=== PATIENT | male | born 1970 | race Caucasian/White ===

== ENCOUNTER 2024-01-03 04:15 | Day surgery (SDC) | payer BC, OTHER ==
[2023-12-28 13:24] VITALS: BMI 44.2
[2024-01-03] MEDS ORDERED: DEXTROSE 5%-0.45% SALINE 1,000 ML IV SCH (15:15)
[2024-01-03] MEDS ORDERED: MIDAZOLAM HCL 2 MG/2 ML SINGLE DOSE VIAL ONE (15:53)
[2024-01-03] MEDS ORDERED: FENTANYL CITRATE/PF 50 MCG/ML VIAL ONE ×2 (15:54→17:07)
[2024-01-03] MEDS ORDERED: PROPOFOL 20 ML ONE (15:54)
[2024-01-03] MEDS ORDERED: ONDANSETRON 4 MG/2 ML VIAL IVPUSH PRN (16:31)
[2024-01-03] MEDS ORDERED: ACETAMINOPHEN INJECTION 100 ML IVPB ONE (16:38)
[2024-01-03] MEDS: ACETAMINOPHEN 1000 MG/100 ML BAG IVPB ONE (16:45)
[2024-01-03] MEDS ORDERED: LACTATED RINGERS SOLUTION 1,000 ML IV SCH (16:45)
[2024-01-03 18:26] VITALS: RESP 18; TEMP 97.8
[2024-01-03 19:53] VITALS: BP 117/74; PULSE 58
== END 2024-01-03 19:45 | disposition home or self-care (01) ==
LOC: JASU-SURG 04:15
PROVIDERS: ATTEND Urology
PROC: 0T7D8DZ Dilation of Urethra with Intraluminal Device, Via Natural or Artificial Opening Endoscopic (ICD-10-PCS; principal; 2024-01-03 15:00)
DX: N40.1 Benign prostatic hyperplasia with lower urinary tract symptoms (principal); R39.12 Poor urinary stream
CPT/HCPCS: C9740; L8699; 82962; 94760; J0131